=== PATIENT | female | born 1990 | race Caucasian/White ===

== ENCOUNTER → 2019-02-25 10:53 | Outpatient (CLI) | payer OTHER, BC, SELFPAY ==
--- NOTE | 2019-02-25 11:03 | XR_ITS ---
PROCEDURE: XR SHOULDER LT MIN 2V CLINICAL INDICATION: LT SHOULDER DERANGEMENT Left shoulder pain with limited range of motion COMPARISON: [id number] VIEW COMP.-LT from 12/08/2014 FINDINGS: No acute fracture or dislocation is evident. Hypertrophic changes are present along the distal and inferior aspect of the clavicle with a vertical lucency through the medial aspect of this area of hypertrophy consistent with an old injury. The glenohumeral joint has an unremarkable appearance IMPRESSION: Old distal clavicular fracture, no acute finding Dictated by: Jluis Ulloa MD 02/25/2019 11:37 Electronically signed by Jluis Ulloa MD in [place] 02/25/2019 11:37
== END ==
PROVIDERS: PCP Family Medicine; Visit Provider Family Medicine
DX: M25.812 Other specified joint disorders, left shoulder (principal)
CPT/HCPCS: 73030

== ENCOUNTER → 2020-04-25 10:00 | Outpatient (CLI) | payer BC, SELFPAY ==
[2020-04-26 14:03] LABS: Covid-19 Nasal PCR Sendout Lex NOT DETECTED
== END ==
PROVIDERS: PCP Family Medicine; Visit Provider Family Medicine
DX: Z03.818 Encounter for observation for suspected exposure to other biological agents ruled out (principal)
CPT/HCPCS: U0004